=== PATIENT | male | born 1990 | race Two or more races ===

== ENCOUNTER 2021-07-28 06:08 | Inpatient (IN) | payer OTHER ==
[~2021-07-28] VITALS: Ht 175.3 cm; Wt 90.1 kg
[2021-07-28] MEDS ORDERED: MORPHINE SULFATE 4 MG/ML SYR/VIAL IV ONE ×2 (07:45→11:30)
[2021-07-28] MEDS ORDERED: PROMETHAZINE HCL 25 MG/ML 1ML IV ONE ×2 (07:45→11:30)
[2021-07-28] MEDS ORDERED: cefTRIAXone 1GM/50ML D5W 50 ML IV ONE (07:45)
[2021-07-28] MEDS ORDERED: SODIUM CHLORIDE 0.9% 1,000 ML IV ONE (08:30)
[2021-07-28] MEDS ORDERED: SODIUM CHLORIDE 0.9% 500 ML IV ONE (08:30)
[2021-07-28 08:40] LABS: Basophils # (auto) 0 10 ^3/uL (0-0.2); Basophils % (auto) 0.1 % (0.0-2.0); Eosinophils # (auto) 0 10 ^3/uL (0-0.8); Hematocrit 41.1 % (41.0-53.0); Hemoglobin 13.9 g/dL (13.5-17.5); Lymphocytes # (auto) 1.1 10 ^3/uL (0.4-5.4); Lymphocytes % (auto) 5.5 % (10.0-50.0); Mean Corpuscular Hemoglobin 28.5 pg (28.0-32.0); Mean Corpuscular Hgb Conc. 33.8 g/dL (32.0-36.0); Mean Corpuscular Volume 84.1 fL (80.0-100.0); Monocytes # (auto) 1.7 10 ^3/uL (0-1.3); Monocytes % (auto) 8.6 % (0.0-12.0); Neutrophils % (auto) 85.8 % (37.0-80.0); Red Blood Cells 4.89 10^6/uL (4.5-5.90); Red Cell Distribution Width 13.5 % (11.8-14.3); White Blood Cell 19.8 10^3/uL (4.4-10.8)
[2021-07-28 08:54] LABS: BUN/Creatinine Ratio 13.1; Calcium 8.4 mg/dL (8.5-10.1); Potassium 3.4 mmol/L (3.5-5.1)
[2021-07-28 09:23] LABS: INR 1.12 (0.9-1.15); Partial Thromboplastin Time 24.7 sec (23.6-33.0)
[2021-07-28] MEDS ORDERED: NITROGLYCERIN 0.4 MG SL TAB SL PRN ×2 (13:45→14:00)
[2021-07-28] MEDS ORDERED: MORPHINE SULFATE INJECTION 2 MG/ML SYRG IV PRN ×2 (13:45→14:00)
[2021-07-28] MEDS ORDERED: HYDROcodone-ACET 5/325MG TAB PO PRN (14:00)
[2021-07-28] MEDS ORDERED: DOCUSATE SOD 100 MG CAP PO PRN (14:00)
[2021-07-28] MEDS ORDERED: NEOMYCIN-BACITRACIN-POLYM UNITDOSE PKG TOP OINT TOP ONE (14:00)
[2021-07-28] MEDS ORDERED: ONDANSETRON HCL 4 MG/2 ML VIAL IV PRN (14:00)
[2021-07-28] MEDS ORDERED: LORazepam 0.5 MG TAB PO PRN (14:00)
[2021-07-28] MEDS ORDERED: ACETAMINOPHEN 325 MG TAB PO PRN (14:00)
[2021-07-28] MEDS: SODIUM CHLORIDE 0.9% 1,000 ML IV SCH (14:23)
[2021-07-28 14:35] LABS: Cholesterol 141 mg/dL (< 200); HDL Cholesterol 41 mg/dL (40-59); LDL Cholesterol 98 mg/dL (< 100); Triglycerides 73 mg/dL (< 150)
[2021-07-28 15:10] VITALS: BP 126/69
[2021-07-28] MEDS ORDERED: MIDAZOLAM HCL 2MG/2ML 2ml VIAL (1mg/ml) ONE (16:10)
[2021-07-28] MEDS ORDERED: fentaNYL CITRATE 100 MCG/2 ML VL ONE (16:10)
[2021-07-28] MEDS ORDERED: PROPOFOL 10 MG/ML 20 ML IV ONE (16:12)
[2021-07-28] MEDS ORDERED: ONDANSETRON HCL 4 MG/2 ML VIAL ONE (17:12)
[2021-07-28] MEDS ORDERED: ceFAZolin 1GM VL ONE (17:15)
[2021-07-28] MEDS ORDERED: HYDROmorphone HCL 2 MG/ML VL IV PRN ×2 (17:45)
[2021-07-28] MEDS ORDERED: METOCLOPRAMIDE HCL 5MG/ml INJ 2ml VIAL IV PRN (17:45)
[2021-07-28] MEDS: MORPHINE SULFATE INJECTION 2 MG/ML SYRG IV PRN ×2 (18:31→22:14)
[2021-07-28] MEDS: ceFAZolin 1GM/50ML 50 ML IV SCH ×2 (18:31→23:06)
[2021-07-29 05:00] VITALS: BP 108/71
[2021-07-29] MEDS: ceFAZolin 1GM/50ML 50 ML IV SCH ×4 (05:24→23:19)
[2021-07-29] MEDS: MORPHINE SULFATE INJECTION 2 MG/ML SYRG IV PRN ×3 (05:27→22:09)
[2021-07-29 05:56] LABS: Basophils # (auto) 0 10 ^3/uL (0-0.2); Basophils % (auto) 0.1 % (0.0-2.0); Eosinophils # (auto) 0 10 ^3/uL (0-0.8); Hematocrit 35.2 % (41.0-53.0); Hemoglobin 12.2 g/dL (13.5-17.5); Lymphocytes % (auto) 10.1 % (10.0-50.0); Mean Corpuscular Hemoglobin 29.4 pg (28.0-32.0); Mean Corpuscular Hgb Conc. 34.7 g/dL (32.0-36.0); Mean Corpuscular Volume 84.7 fL (80.0-100.0); Monocytes # (auto) 1.3 10 ^3/uL (0-1.3); Monocytes % (auto) 12.9 % (0.0-12.0); Neutrophils # (auto) 7.9 10 ^3/uL (1.6-8.6); Neutrophils % (auto) 76.9 % (37.0-80.0); Red Blood Cells 4.15 10^6/uL (4.5-5.90); Red Cell Distribution Width 13.7 % (11.8-14.3); White Blood Cell 10.2 10^3/uL (4.4-10.8)
[2021-07-29 06:05] LABS: INR 1.09 (0.9-1.15); Partial Thromboplastin Time 28.6 sec (23.6-33.0)
[2021-07-29] MEDS: SODIUM CHLORIDE 0.9% 1,000 ML IV SCH (06:25)
[2021-07-29 06:39] LABS: Calcium 7.7 mg/dL (8.5-10.1); Potassium 4.1 mmol/L (3.5-5.1)
[2021-07-29 06:46] LABS: Albumin 3.1 g/dL (3.4-5.0); BUN/Creatinine Ratio 15.9; Bilirubin, Total 0.7 mg/dL (0.2-1.0); Magnesium 2.7 mg/dL (1.6-2.6); Total Protein 5.8 g/dL (6.4-8.2)
[2021-07-29 08:00] VITALS: BP 118/61
[2021-07-29 09:00] VITALS: BP 118/61
[2021-07-29] MEDS: NEOMYCIN-BACITRACIN-POLYM UNITDOSE PKG TOP OINT TOP SCH (10:00)
[2021-07-29] MEDS: ENOXAPARIN SOD 40 MG/0.4 ML SYRINGE SC SCH (10:11)
[2021-07-29 13:00] VITALS: BP 133/86
[2021-07-29 16:48] VITALS: BP 133/71
[2021-07-29 22:00] VITALS: BP 119/71
[2021-07-30 05:00] VITALS: BP 127/70
[2021-07-30] MEDS: ceFAZolin 1GM/50ML 50 ML IV SCH ×2 (05:13→12:00)
[2021-07-30 09:00] VITALS: BP 125/65
[2021-07-30] MEDS: NEOMYCIN-BACITRACIN-POLYM UNITDOSE PKG TOP OINT TOP SCH (10:00)
[2021-07-30] MEDS: ENOXAPARIN SOD 40 MG/0.4 ML SYRINGE SC SCH (10:14)
[2021-07-30] MEDS ORDERED: DOCU100C10 PO (12:19)
[2021-07-30] MEDS ORDERED: CEPH-322 PO (12:19)
[2021-07-30 13:00] VITALS: BP 128/74
[2021-07-30 13:58] VITALS: BP 146/68
== END 2021-07-30 14:45 | disposition home or self-care (01) | DRG 494 ==
LOC: ER 06:08 → EDBD 06:08 → OVERFLOW 13:34 → CENTRAL 15:08
PROVIDERS: ADMIT Hospitalist; ATTEND Internal Medicine
PROC: 0PBG0ZZ Excision of Left Humeral Shaft, Open Approach (ICD-10-PCS; principal; 2021-07-28 16:54)
DX: S42.402B Unspecified fracture of lower end of left humerus, initial encounter for open fracture (principal); Y08.89XA Assault by other specified means, initial encounter; Y93.89 Activity, other specified; Y92.89 Other specified places as the place of occurrence of the external cause; Y99.8 Other external cause status; Z20.822 Contact with and (suspected) exposure to COVID-19
CPT/HCPCS: 36415; 70450; 71045; 73070; 73090; 80048; 80053; 80061; 83036; 83735; 83880; 84100; 84484; 85025; 85610; 85730; 86850; 86900; 86901; 87040; 87426; 93005; 96365; 96375; G0378; J0690; J0696; J2250; J2405; J2704